=== PATIENT | female | born 1965 | race Caucasian/White ===

== ENCOUNTER 2017-09-11 00:23 | Emergency (ER) | payer OTHER ==
[~2017-09-11] VITALS: Ht 162.6 cm; Wt 60.0 kg
[2017-09-11 00:25] VITALS: BP 126/69; PULSE 84; RESP 16; TEMP 97.7; O2SAT 100
[2017-09-11] MEDS ORDERED: SODIUM CHLORIDE 0.9% FLUSH 10 ML FLUSH IV FLUSH PRN (01:00)
[2017-09-11 01:22] LABS: AUTOMATED NEUTROPHIL # 7.8 TH/MM3 (1.8-7.7); BASOPHIL # 0.1 TH/MM3 (0-0.2); BASOPHIL % 1.1 % (0.0-2.0); EOSINOPHIL # 0.2 TH/MM3 (0-0.4); EOSINOPHIL % 1.8 % (0.0-4.0); HEMO FLAGS DIFF FINAL; LYMPH % 21.1 % (9.0-44.0); LYMPHOCYTE # 2.4 TH/MM3 (1.0-4.8); MEAN CELL VOLUME 93.4 FL (80.0-100.0); MEAN CORPUSCULAR HEMOGLOBIN 31.5 PG (27.0-34.0); MEAN CORPUSCULAR HGB CONC 33.8 % (32.0-36.0); MONO % 6.4 % (0.0-8.0); NEUT % 69.6 % (16.0-70.0); PLATELET COUNT 242 TH/MM3 (150-450); RED BLOOD COUNT 3.11 MIL/MM3 (4.00-5.30); RED CELL DISTRIBUTION WIDTH 14.2 % (11.6-17.2); WHITE BLOOD COUNT 11.3 TH/MM3 (4.0-11.0)
[2017-09-11 01:38] LABS: BACTERIA, URINE OCC /hpf; BLOOD, URINE LARGE (NEG); COMMENT (UR) CULTURE INDICATED; CULTURE IF INDICATED CULTURE INDICATED; GLUCOSE,URINE NEG (NEG); KETONE, URINE TRACE mg/dL (NEG); NITRITE,URINE NEG (NEG); PH, URINE 5.5 (5.0-8.5); URINE COLOR RED (YELLW/STRAW)
[2017-09-11 01:41] LABS: BICARBONATE 27.1 MEQ/L (21.0-32.0)
[2017-09-11 01:42] LABS: POTASSIUM 3.8 MEQ/L (3.5-5.1)
[2017-09-11] MEDS ORDERED: FERR325T18 PO (02:46)
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
[2017-09-12] MEDS ORDERED: CETI10CA3 PO (09:03)
== END 2017-09-11 03:00 | disposition home or self-care (01) ==
LOC: NEPC 00:23
DX: N93.8 Other specified abnormal uterine and vaginal bleeding (principal); D64.9 Anemia, unspecified; N85.2 Hypertrophy of uterus; Z88.2 Allergy status to sulfonamides; Z86.79 Personal history of other diseases of the circulatory system
CPT/HCPCS: 80048; 81001; 84703; 85025; 87086; 99285

== ENCOUNTER 2017-09-12 07:39 | Observation (INO) | payer OTHER ==
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
[~2017-09-12] VITALS: Ht 162.6 cm; Wt 60.4 kg
[2017-09-12] MEDS: DOCUSATE SODIUM 100 MG CAP PO SCH ×3 (02:15→21:00)
[~2017-09-12 07:39] MED LIST: FERR325T18 PO
[2017-09-12] MEDS ORDERED: CHLORHEXIDINE GLUCONATE 2 % 1 PACK (2 CLOTHS) TOPICAL PRN (09:00)
[2017-09-12] MEDS ORDERED: ceFAZolin 2 GM PREMIX 50 ML IV ONE (09:00)
[2017-09-12] MEDS ORDERED: POVIDONE IODINE 5% (ANTISEPSIS KIT) 4 APPLICATIONS EACH NARE PRN (09:00)
[2017-09-12] MEDS ORDERED: SODIUM CHLORID 0.9% 500 ML IV PRN (09:00)
[2017-09-12] MEDS ORDERED: LACTATED RINGER'S 1000 ML IV PRN (09:00)
[2017-09-12] MEDS ORDERED: METOPROLOL TARTRATE 25 MG TAB PO PRN (09:00)
[2017-09-12] MEDS ORDERED: CETI10CA3 PO (09:03)
[2017-09-12] MEDS ORDERED: DEXAMETHASONE SOD PHOS 4 MG/ML VIAL IV ONE (12:00)
[2017-09-12] MEDS ORDERED: MIDAZOLAM HCL 2 MG/2 ML VIAL IV ONE (12:00)
[2017-09-12] MEDS ORDERED: PROPOFOL 200 MG/20 ML AMP IV ONE (12:00)
[2017-09-12] MEDS ORDERED: LIDOCAINE HCL 1% PF 5 ML SYRINGE OTHER ONE (12:00)
[2017-09-12] MEDS ORDERED: ONDANSETRON HCL 4 MG/2 ML VIAL IV ONE (12:00)
[2017-09-12 13:47] LABS: REVIEW FLAG FINAL
[2017-09-12 13:52] LABS: HEMATOCRIT 16.6 % (35.0-46.0)
[2017-09-12] MEDS ORDERED: diphenhydrAMINE HCL 25 MG CAP PO PRN (14:00)
[2017-09-12] MEDS ORDERED: SODIUM CHLORIDE 0.9% FLUSH 10 ML FLUSH IV FLUSH PRN (14:00)
[2017-09-12] MEDS ORDERED: IBUPROFEN 600 MG TAB PO PRN (14:00)
[2017-09-12] MEDS ORDERED: LORazepam 0.5 MG TAB PO PRN (14:00)
[2017-09-12] MEDS ORDERED: ONDANSETRON HCL 4 MG/2 ML VIAL IVP PRN (14:00)
[2017-09-12] MEDS ORDERED: oxyCODONE/ACETAMINOPHEN 5 MG/325 MG TAB PO PRN ×2 (14:00)
[2017-09-12] MEDS ORDERED: MORPHINE SULFATE 4 MG/ML INJ IV PUSH PRN (14:00)
[2017-09-12] MEDS ORDERED: DO NOT ADM ANY ANTICOAGULANT DRUGS PRN (14:03)
[2017-09-12] MEDS: LACTATED RINGER'S 1000 ML INJ 1,000 ML IV SCH ×2 (14:10→21:23)
--- NOTE | 2017-09-12 14:53 | EKG ---
Date Performed: 09/12/2017 Time Performed: 08:54:23 PTAGE: 52 years EKG: Sinus rhythm NORMAL ECG NO PREVIOUS TRACING DOCTOR: Usama Glaser Interpretating Date/Time 09/12/2017 14:51:33
[2017-09-12] MEDS ORDERED: TRANEXAMIC ACID 650 MG TAB PO ONE (15:00)
[2017-09-12 16:35] VITALS: BP 121/66; PULSE 90; RESP 14; TEMP 98.5; O2SAT 98
[2017-09-12 17:33] VITALS: BP 111/56; PULSE 78; RESP 17; TEMP 97; O2SAT 99
[2017-09-12 19:30] VITALS: O2SAT 99
[2017-09-12 20:00] VITALS: BP 106/59; PULSE 60; RESP 18; TEMP 97.6; O2SAT 96
[2017-09-12] MEDS ORDERED: ZOLPIDEM TARTRATE 5 MG TAB PO PRN (21:00)
[2017-09-12] MEDS: SODIUM CHLORIDE 0.9% FLUSH 10 ML FLUSH IV FLUSH SCH (21:24)
[2017-09-13 00:31] VITALS: BP 92/51; PULSE 88; RESP 17; TEMP 97.8; O2SAT 96
[2017-09-13 02:10] VITALS: BP 100/51; PULSE 80
[2017-09-13 02:38] LABS: AUTOMATED NEUTROPHIL # 7.6 TH/MM3 (1.8-7.7); BASOPHIL % 0.4 % (0.0-2.0); EOSINOPHIL % 0.1 % (0.0-4.0); HEMATOCRIT 26.4 % (35.0-46.0); HEMO FLAGS DIFF FINAL; LYMPH % 16.6 % (9.0-44.0); LYMPHOCYTE # 1.7 TH/MM3 (1.0-4.8); MEAN CELL VOLUME 85.1 FL (80.0-100.0); MEAN CORPUSCULAR HEMOGLOBIN 29.5 PG (27.0-34.0); MEAN CORPUSCULAR HGB CONC 34.6 % (32.0-36.0); MONO % 8.5 % (0.0-8.0); NEUT % 74.4 % (16.0-70.0); PLATELET COUNT 183 TH/MM3 (150-450); RED CELL DISTRIBUTION WIDTH 18.7 % (11.6-17.2); WHITE BLOOD COUNT 10.3 TH/MM3 (4.0-11.0)
[2017-09-13 04:57] VITALS: BP 90/51; PULSE 75; RESP 16; TEMP 97; O2SAT 96
[2017-09-13 05:18] VITALS: BP 94/52
[2017-09-13] MEDS: LACTATED RINGER'S 1000 ML INJ 1,000 ML IV SCH (06:33)
[2017-09-13 08:00] VITALS: BP 98/53; PULSE 73; RESP 16; TEMP 97.6; O2SAT 99
[2017-09-13] MEDS: SODIUM CHLORIDE 0.9% FLUSH 10 ML FLUSH IV FLUSH SCH (08:24)
[2017-09-13] MEDS: DOCUSATE SODIUM 100 MG CAP PO SCH (08:24)
--- NOTE | 2017-09-13 08:40 | MP ---
cc: USAMA GROVE M.D. DATE OF SURGERY: 09/12/2017 PREOPERATIVE DIAGNOSIS Perimenopausal menometrorrhagia with anemia. PROCEDURE Exam under anesthesia, diagnostic hysteroscopy, dilatation and curettage, failed use of NovaSure endometrial ablation. POSTOPERATIVE DIAGNOSIS Perimenopausal menometrorrhagia with anemia. SURGEON Usama Grove MD ANESTHESIA General with LMA. ESTIMATED BLOOD LOSS 75 ccs. DRAINS None. OPERATIVE FINDINGS The patient had a large dilated open cervix and enlarged uterus with stage II to III uterine prolapse. The endometrial cavity was polypoid in nature but no focal abnormality, no perforation. Pathology specimens included endocervical polyp with curettings and endometrial curettings. INDICATIONS FOR PROCEDURE Patient with significant persistent menorrhagia was seen in the emergency department on September 09 and diagnosed with anemia, hemoglobin was 9.2 and was referred out for outpatient management. The patient was seen in the office on 09/11 with significant bleeding. The patient was elected for emergent endoscopic procedure and possible endometrial ablation. 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 There are no significant findings, there are small fibroids, less than 2 cm. The patient's preop antibiotic was Ancef x2 grams. DESCRIPTION OF PROCEDURE The patient was taken to the operating room under general anesthesia, had an LMA placed. She was carefully positioned in dorsolithotomy position using candy-cane stirrups with sequentials placed on lower extremities for VTE prophylaxis. She was prepped and draped and a time-out was conducted and agreed by all present in the room. Simple bivalve speculum was used to examine the cervix which was easily secured with a single-tooth tenaculum. Small polyp was identified at the cervical os and this was removed with polyp forceps and then curettings were obtained. Uterine sound was then gently placed in a slightly anteverted position measuring about 12 cm. The cervix was dilated and did not require dilatation and the 5 mm hysteroscope with normal saline was attached and used to examine the cavity. The cavity had a very thick polypoid endometrium but no focal abnormality present. Curettings were obtained and sent in formalin. The NovaSure device was then utilized. The measurements were set at 6.5 with 4.7 width. Several attempts were made to secure the NovaSure in the endometrial cavity with a very large open cervix. Cavity assessment was never accomplished despite use of several attempts with Allis clamps, single-tooth tenaculum and final attempt was a #1 Prolene suture sutured in a cerclage type fashion around the NovaSure with no success in maintaining cavity pressure. At this point the procedure was aborted followed by aggressive curettage in the endometrium. Tissue was sent in formalin. At the completion of the case the bleeding had subsided. There were no active clots. At the end of the case final counts were correct. The patient was stable. She was taken to the recovery room on room. Hemoglobin obtained in the operating room returned 5.6. The patient was to be admitted for transfusion and followup care. MD GREG Bermudez/TLL /6:10 PM /8:11 AM
--- NOTE | 2017-09-13 09:37 | HHI.PR ---
Subjective Remarks Doing well, pain is well controlled, eating well. Only spotting, used 1 pad overnight. AM hgb 9.1 after 2 units PRBCs Objective Vital Signs Vital Signs Date Time Temp Pulse Resp B/P (MAP) Pulse Ox O2 Delivery O2 Flow Rate FiO2 09/13/17 08:00 97.6 73 16 98/53 (68) 99 09/13/17 05:18 94/52 (66) 09/13/17 04:57 97.0 75 16 90/51 (64) 96 09/13/17 02:10 80 100/51 (67) 09/13/17 00:31 97.8 88 17 92/51 (65) 96 09/12/17 20:00 97.6 60 18 106/59 (75) 96 09/12/17 19:30 99 21 09/12/17 17:33 97.0 78 17 111/56 (74) 99 09/12/17 17:00 98.7 81 12 101/63 (76) 99 Room Air 09/12/17 16:40 86 12 98/55 (69) 100 Room Air 09/12/17 16:35 98.5 90 14 121/66 98 09/12/17 16:30 98.5 80 12 103/57 (72) 100 Room Air 09/12/17 16:15 85 12 96/55 (69) 100 Room Air 09/12/17 15:15 83 12 105/56 (72) 100 Room Air 09/12/17 15:00 84 12 112/64 (80) 98 Room Air 09/12/17 14:45 80 12 120/64 (82) 100 Room Air 09/12/17 14:30 82 12 138/75 (96) 97 Room Air 09/12/17 14:15 83 12 131/63 (85) 100 Room Air 09/12/17 14:05 98.1 87 12 122/60 (80) 100 Room Air I/O 09/12/17 09/12/17 09/12/17 09/13/17 09/13/17 09/13/17 07:00 15:00 23:00 07:00 15:00 23:00 Intake Total 1000 ml 400 ml 1819 ml Output Total 75 ml 700 ml Balance 925 ml -300 ml 1819 ml Intake Oral 670 ml IV Total 1000 ml 749 ml Packed Cells 400 ml 400 ml Output Urine Total 700 ml Estimated Blood Loss 75 ml # Voids 4 # Bowel Movements 0 # Sanitary Pads 1 Pads Result Diagram: 09/13/17 0201 Objective Remarks Chest is clear, regular rate and rhythm. Abdomen is soft and non-distended. Incision is clean and dry. Ext no CCE. A/P Assessment and Plan Post Op Day 1, D+C/hysteroscopy, failed Novasur due to enlarged endometrial cavity Doing well, no bleeing,feels better, Discussed starting continous OCP now, Home today and return to office in 1 weeks. Reinforced oral iron and diet/activity restrictions Usama Shahid MD Sep 13, 2017 09:37
--- NOTE | 2017-09-13 09:38 | HHI.DCPOC ---
Discharge Care Plan Your Health Problems Are: Fever, temperature>100.4 Pelvic pain Vaginal bleeding Report Symptoms to Your Doctor -Temperature above 100.5 degrees -Redness, of incision or excessive or foul smelling drainage -Unusual pain or calf pain -Increased vaginal bleeding -Painful or difficulty urinating -Feelings of extreme sadness or anxiety after 2 weeks Goals to Promote Your Health * To prevent worsening of your condition and complications * To maintain your health at the optimal level Directions to Meet Your Goals Take your medications as prescribed Follow your dietary instruction Follow activity as directed Ensure plenty of rest for recovery Drink fluids for hydration Keep your appointments as scheduled Take your immunizations and boosters as scheduled If your symptoms worsen call your PCP, if no PCP go to Urgent Care Center or Emergency Room Smoking is Dangerous to Your Health. Avoid second hand smoke Call the 24-hour crisis hotline for domestic abuse at Usama Shahid MD Sep 13, 2017 09:38
[2017-09-13 09:46] VITALS: O2SAT 98
== END 2017-09-13 10:43 | disposition home or self-care (01) ==
LOC: HSDC 07:39 → HSDI 14:01 → N07A 17:16
PROVIDERS: ADMIT Obstetrics & Gynecology; ATTEND Obstetrics & Gynecology
DX: N92.1 Excessive and frequent menstruation with irregular cycle (principal); N81.3 Complete uterovaginal prolapse; D50.0 Iron deficiency anemia secondary to blood loss (chronic); R53.83 Other fatigue; N84.1 Polyp of cervix uteri
CPT/HCPCS: 00952; 36430; 58563; 85014; 85018; 85025; 86850; 86900; 86901; 86920; 88305; 93005; 96360; G0378; J0690; J1100; J2250; J2405; J3010; J7120; P9016